=== PATIENT | male | born 1970 | race African-American/Black ===

== ENCOUNTER 2019-09-20 08:53 | Outpatient (CLI) | payer OTHER ==
--- NOTE | 2019-09-20 12:03 | MRI ---
MULTI PARAMETRIC MRI OF THE PELVIS (PROSTATE) WITH AND WITHOUT IV CONTRAST WITH REVIEW ON INDEPENDENT 3-D WORKSTATION: HISTORY: Elevated PSA COMPARISON: None FINDINGS: PROSTATE: The prostate gland measures 4.7 x 5.4 x 6.5 cm cm with a volume of 86 cc. PERIPHERAL ZONE: No focal abnormal areas of restricted diffusion is seen to suggest malignant process . TRANSITIONAL ZONE: No lentiform area of abnormally decreased T2 signal is seen to suggest a malignant process. No focal arterial enhancing mass is seen. Prostatic capsule is intact. The seminal vesicles are intact. LYMPH NODES: No lymphadenopathy is seen. SOFT TISSUES: Pelvic sidewall is normal. No abnormality of the visualized rectum is seen. BONES: No abnormal areas of signal replacement on the T1-weighted sequences are seen to suggest osseo us metastatic disease. IMPRESSION: PI-RADS 2: Low (clinically significant prostate cancer is unlikely to be present). This exam was interpreted in consultation with Dr. Chava Burleson, who concurs.
[2019-09-20] MEDS ORDERED: Magnevist 469MG/ML 20 ML VIAL ONE (14:19)
== END 2019-09-20 08:54 | disposition home or self-care (01) ==
LOC: TBSIIMAG 08:53
PROVIDERS: ATTEND Urology
DX: R97.20 Elevated prostate specific antigen [PSA] (principal)
CPT/HCPCS: 72197; A9579